=== PATIENT | female | born 1965 | race Caucasian/White ===

== ENCOUNTER → 2018-09-25 | Outpatient (CLI) | payer OTHER ==
[~2018-09-25] MED LIST: ASA5UEC PO; AUGMENTIN 875875 MG PO; COZAAR 50 MG TA50 M2 PO; GABAPENTIN; HYDROXYCHLOROQ200 M1; IBUPROFEN 800800 M1 PO; LEVOTHROID100 MC1; LEVOTHYROXIN0.175 MG PO; METHOTREXATE; NEURONTIN100 MG PO; NITROSTAT0.4 MG SL; PAXIL PO; PREDNISONE 10 M10 MG PO; PROMETHAZINE-C120 ML PO; PROTONIX40 M1 PO; SERTRALINE HCL50 MG PO; VENTOLIN HFA 1818 GM INH; XANAX 0.5 MG0.5 MG PO; [UNRECOGNIZED DRUG - REMARK]
== END ==
LOC: M.RAD 08:56
DX: Z12.31 Encounter for screening mammogram for malignant neoplasm of breast (principal)

== ENCOUNTER → 2019-10-01 | Outpatient (CLI) | payer OTHER | LOC: M.RAD 13:53 | DX: Z12.31 Encounter for screening mammogram for malignant neoplasm of breast (principal) ==

== ENCOUNTER → 2020-10-04 | Outpatient (CLI) | payer OTHER | LOC: M.RAD 09:10 | PROVIDERS: ATTEND Family Medicine | DX: Z12.31 Encounter for screening mammogram for malignant neoplasm of breast (principal) ==